=== PATIENT | male | born 1975 | race Caucasian/White ===

== ENCOUNTER 2021-11-20 05:49 | Emergency (ER) | payer BC ==
[~2021-11-20] VITALS: Ht 182.9 cm; Wt 98.0 kg
[2021-11-20] MEDS ORDERED: DISULFIRAM500 MG PO (06:06)
[2021-11-20] MEDS ORDERED: MIRTAZAPINE15 MG PO (06:06)
[2021-11-20] MEDS ORDERED: DULOXETINE HCL60 MG PO (06:06)
[2021-11-20] MEDS ORDERED: GLIPIZIDE5 MG PO (06:06)
[2021-11-20] MEDS ORDERED: GABAPENTIN800 MG PO (06:07)
[2021-11-20] MEDS ORDERED: LISINOPRIL20 MG PO (06:07)
--- NOTE | 2021-11-20 17:28 | EKG ---
[facility] [address] [facility] [place] [address] Signed Normal sinus rhythm Left posterior fascicular block Possible Inferior infarct , age undetermined Abnormal ECG No previous ECGs available Confirmed by ABIMAEL COFFMAN MD ([id number]) on 11/20/2021 5:27:47 PM Electronically Signed By: ABIMAEL COFFMAN MD 11/20/21 1728 PATIENT NAME: MELYSSA OHAleksandr LY Electrocardiogram DATE OF : 75 PHYSICIAN: ABIMAEL COFFMAN MD REPORT #: [id number] REPORT IS CONFIDENTIAL AND NOT TO BE RELEASED WITHOUT AUTHORIZATION
== END 2021-11-20 10:56 | disposition home or self-care (01) ==
LOC: ED 05:49
DX: E86.0 Dehydration (principal); E11.9 Type 2 diabetes mellitus without complications; Z79.84 Long term (current) use of oral hypoglycemic drugs; Z79.899 Other long term (current) drug therapy
CPT/HCPCS: 36415; 70450; 80053; 81001; 82010; 82803; 83735; 85025; 93005; 93010; 99285-25; G0480; J7030